=== PATIENT | male | born 1985 | race Caucasian/White ===

== ENCOUNTER 2019-04-11 19:31 | Emergency (ER) | payer OTHER ==
[~2019-04-11] VITALS: Ht 175.3 cm; Wt 117.9 kg
[2019-04-11 20:16] LABS: ABSOLUTE BASOPHILS 0.1 thou/uL (0.0-0.2); ABSOLUTE EOSINOPHILS 0.5 thou/uL (0.0-0.7); ABSOLUTE LYMPHOCYTES 3.6 thou/uL (0.8-5.3); ABSOLUTE MONOCYTES 0.8 thou/uL (0.0-1.2); ABSOLUTE NEUTROPHILS 8.7 thou/uL (1.6-8.1); EOSINOPHILS 3.3 %; HEMATOCRIT 44.1 % (42.0-52.0); HEMOGLOBIN 15.2 gm/dL (14.0-18.0); LYMPHOCYTES 26.5 %; MCH 26.3 pg (26.0-34.0); MCHC 34.5 g/dL (28.0-37.0); MCV 76.4 fL (80.0-100.0); MONOCYTES 6.1 %; MPV 8.8 fl. (7.2-11.1); NUCLEATED RBCS 0 /100WBC; PLATELET COUNT* 279 thou/uL (150-400); POLYS 63.1 %; RBC 5.78 mil/uL (4.50-6.00); RDW-CV 13.5 % (10.5-14.5); WBC 13.7 thou/uL (4.0-11.0)
[2019-04-11 20:22] LABS: ANION GAP 11 mmol/L (7-16); BUN 16 mg/dL (7-18); CALCIUM 9.4 mg/dL (8.5-10.1); CHLORIDE 104 mmol/L (98-107); CO2 30 mmol/L (21-32); GLUCOSE 79 mg/dL (70-99); POTASSIUM 3.8 mmol/L (3.5-5.1); SODIUM 145 mmol/L (136-145)
[2019-04-11 20:34] LABS: ALBUMIN 4.3 g/dL (3.4-5.0); ALKALINE PHOSPHATASE 87 U/L (46-116); NT-PRO BRAIN NAT PEPTIDE 15 pg/mL (<300); SGOT 45 U/L (15-37); SGPT 100 U/L (30-65); TOTAL BILIRUBIN 0.5 mg/dL (<0.1-1.0); TROPONIN-I LEVEL <0.06 ng/mL (<0.06)
[2019-04-11] MEDS ORDERED: NORVASC2.5 MG PO (20:38)
[2019-04-11 21:07] VITALS: BP 132/85
--- NOTE | 2019-04-12 09:18 | EKG ---
[place] [address] ELECTROCARDIOGRAM REPORT Name: EARLENE GROSSMAN Room: [facility]#: [id number] Admission: 04/11/19 Attend Phys: Discharge: 04/11/19 Date of : 87 Report #: [id number] THIS REPORT FOR: //name// [facility] ED Test Date: 2019-04-11 Test Time: 20:11:19 Pat Name: EARLENE GROSSMAN Department: Room: Gender: M Patient Safety Coordinator: MELCHOR : 1985 Requested By: Sonu Mancilla Order Number: [id number] MD: Demetrius Dodd Measurements Intervals [place] Rate: 81 P: 11 DE: 176 QRS: 13 QRSD: 91 T: 1 QT: 364 QTc: 423 Interpretive Statements Sinus rhythm No previous ECG available for comparison Electronically Signed On 04-12-2019 9:17:52 CDT by Demetrius Dodd [email or web address] <ELECTRONICALLY SIGNED> By: Demetrius Dodd MD, [facility] 04/12/19 0917 10 10 Demetrius Dodd MD, FACC /EPI
== END 2019-04-11 21:10 | disposition home or self-care (01) ==
LOC: M.ERS 19:31
PROVIDERS: Emergency Medicine
DX: I10 Essential (primary) hypertension (principal); F17.210 Nicotine dependence, cigarettes, uncomplicated